=== PATIENT | male | born 1955 | race Asian ===

== ENCOUNTER 2017-12-14 18:07 | Inpatient (IN) | payer BC ==
[~2017-12-14] VITALS: Ht 165.1 cm; Wt 56.7 kg
[2017-12-14 18:13] VITALS: BP_SYST 157
[2017-12-14 18:44] LABS: BASOPHILS % (AUTO) 0.4 % (0.0-2.0); EOSINOPHILS # (AUTO) 0.1 K/uL (0.0-0.4); EOSINOPHILS % (AUTO) 1.1 % (0.0-4.0); LYMPHOCYTES % (AUTO) 21.8 % (20.5-51.5); MEAN CORPUSCULAR HEMOGLOBIN 23 pg (27-31); MEAN CORPUSCULAR HGB CONC 31 % (32-36); MEAN CORPUSCULAR VOLUME 76 fL (79.0-98.0); MONOCYTES # (AUTO) 0.8 K/uL (0.0-1.0); MONOCYTES % (AUTO) 8.6 % (1.7-9.3); NEUTROPHILS # (AUTO) 6.2 K/uL (1.8-7.7); NEUTROPHILS % (AUTO) 68.1 % (40.0-70.0); PLATELET COUNT (AUTO) 332 K/uL (130-430); RED BLOOD CELL COUNT(AUTO) 2.68 MIL/uL (4.2-6.2); RED CELL DISTRIBUTION WIDTH 19.2 % (9.0-15.0); WHITE BLOOD COUNT (AUTO) 9.1 K/uL (4.8-10.8)
[2017-12-14 18:47] LABS: HEMATOCRIT 20.2 % (36-54); HEMOGLOBIN 6.2 g/dL (14.0-18.0)
[2017-12-14 19:01] LABS: PROTHROMBIN TIME 10.3 SECS (9.5-12.5)
[2017-12-14 19:10] LABS: CALCIUM 8.3 mg/dL (8.4-11.0); CREATININE 0.92 mg/dL (0.55-1.30); POTASSIUM 3.8 mmol/L (3.5-5.1)
[2017-12-14 19:16] LABS: ALBUMIN 3.1 g/dL (3.4-4.8); TOTAL BILIRUBIN 0.2 mg/dL (0.0-1.0)
[2017-12-14 20:29] LABS: HEMATOCRIT 19.5 % (36-54); HEMOGLOBIN 6.2 g/dL (14.0-18.0)
[2017-12-14 20:45] VITALS: BP_SYST 145
[2017-12-14 22:33] VITALS: BP_SYST 163
[2017-12-14] MEDS: PANTOPRAZOLE SODIUM 40 MG/VIAL (PROTONIX) IVP SCH (22:50)
[2017-12-15] VITALS (8 sets, daily range): BP systolic 148–163
[2017-12-15 05:53] LABS: HEMATOCRIT 27.1 % (36-54); HEMOGLOBIN 8.3 g/dL (14.0-18.0)
[2017-12-15 06:44] LABS: THYROID STIMULATING HORMONE 0.69 uIu/mL (0.34-4.82)
[2017-12-15 06:55] LABS: TOTAL IRON BIND. CAPACITY 293 ug/dL (250-450)
[2017-12-15] MEDS: PANTOPRAZOLE SODIUM 40 MG/VIAL (PROTONIX) IVP SCH ×2 (09:20→20:17)
[2017-12-15 09:37] LABS: HEMOGLOBIN 9.3 g/dL (14.0-18.0)
[2017-12-15] MEDS: D5NS 1,000 ML IV SCH ×2 (14:08)
[2017-12-15 14:28] LABS: HEMATOCRIT 27.4 % (36-54); HEMOGLOBIN 8.7 g/dL (14.0-18.0)
[2017-12-15] MEDS ORDERED: BISACODYL 5 MG TABLET.DR (DULCOLAX) PO ONE (17:00)
[2017-12-15] MEDS ORDERED: GOLYTELY / COLYTE SOLUTION 4 LITERS PO ONE (18:00)
[2017-12-15 19:58] LABS: HEMATOCRIT 28.7 % (36-54); HEMOGLOBIN 9.1 g/dL (14.0-18.0)
[2017-12-16 00:26] VITALS: BP_SYST 152
[2017-12-16 02:25] LABS: HEMATOCRIT 28.9 % (36-54); HEMOGLOBIN 9.2 g/dL (14.0-18.0)
[2017-12-16] MEDS: D5NS 1,000 ML IV SCH ×2 (04:32→15:09)
[2017-12-16 06:36] LABS: PROTHROMBIN TIME 10.3 SECS (9.5-12.5)
[2017-12-16 08:00] VITALS: BP_SYST 155
[2017-12-16] MEDS: PANTOPRAZOLE SODIUM 40 MG/VIAL (PROTONIX) IVP SCH ×2 (08:41→20:25)
[2017-12-16 08:53] LABS: HEMATOCRIT 27.9 % (36-54); HEMOGLOBIN 8.9 g/dL (14.0-18.0)
[2017-12-16 12:23] VITALS: BP_SYST 152
[2017-12-16] MEDS ORDERED: SIMETHICONE 40 MG/0.6 ML ML ONE (12:28)
[2017-12-16] MEDS ORDERED: MIDAZOLAM HCL 5 MG/5 ML VIAL ONE ×2 (12:31)
[2017-12-16] MEDS ORDERED: fentaNYL CITRATE/PF 100 MCG/2 ML AMP ONE ×2 (12:32)
[2017-12-16 15:12] LABS: FOLATE (FOLIC ACID) 18.9 ng/mL (>3.0)
[2017-12-16 15:19] LABS: HEMATOCRIT 29.5 % (36-54); HEMOGLOBIN 9.4 g/dL (14.0-18.0)
[2017-12-16 16:19] VITALS: BP_SYST 152
[2017-12-16 20:00] VITALS: BP_SYST 125
[2017-12-16 20:16] LABS: HEMATOCRIT 27.4 % (36-54); HEMOGLOBIN 8.6 g/dL (14.0-18.0)
[2017-12-17 01:47] VITALS: BP_SYST 154
[2017-12-17] MEDS: D5NS 1,000 ML IV SCH ×2 (05:27→14:29)
[2017-12-17 08:00] VITALS: BP_SYST 157
[2017-12-17] MEDS: PANTOPRAZOLE SODIUM 40 MG/VIAL (PROTONIX) IVP SCH (08:25)
[2017-12-17 12:40] VITALS: BP_SYST 163
[2017-12-17 16:21] VITALS: BP_SYST 144
[2017-12-17 17:01] VITALS: BP_SYST 144
[2017-12-21 11:47] LABS: FERRITIN 11
== END 2017-12-17 19:43 | disposition home or self-care (01) | DRG 379 ==
LOC: SED 18:07 → STU 19:23 → SMU 12-15 21:06
PROVIDERS: ADMIT Internal Medicine Hospice and Palliative Medicine; ATTEND Internal Medicine Hospice and Palliative Medicine
PROC: 30233N1 Transfusion of Nonautologous Red Blood Cells into Peripheral Vein, Percutaneous Approach (ICD-10-PCS; principal; 2017-12-14)
PROC: 0DBH8ZX Excision of Cecum, Via Natural or Artificial Opening Endoscopic, Diagnostic (ICD-10-PCS; 2017-12-16)
PROC: 0DB78ZX Excision of Stomach, Pylorus, Via Natural or Artificial Opening Endoscopic, Diagnostic (ICD-10-PCS; 2017-12-16 14:00)
DX: K26.4 Chronic or unspecified duodenal ulcer with hemorrhage (principal); D50.9 Iron deficiency anemia, unspecified; E11.9 Type 2 diabetes mellitus without complications; I10 Essential (primary) hypertension; F17.200 Nicotine dependence, unspecified, uncomplicated; K63.5 Polyp of colon; K64.8 Other hemorrhoids
CPT/HCPCS: 36415; 43239; 45380; 71045; 80053; 82607; 82728; 82746; 83540-TC; 83550-TC; 83615-TC; 84443-TC; 84484; 85018-TC; 85025; 85610-TC; 85730-TC; 86886; 86900; 86901; 86920; 87081; 88305; 88312; 88313; 93005; 99285; C9113; G0378; J2250; J3010; J7030; J7042; P9021